=== PATIENT | male | born 1955 | race Caucasian/White ===

== ENCOUNTER 2020-02-12 05:19 | Inpatient (IN) | payer BC, MEDICARE ==
[~2020-02-12] VITALS: Ht 180.3 cm; Wt 96.0 kg
[2020-02-12] MEDS ORDERED: FLONASEALLERGY NS (05:32)
[2020-02-12 05:47] LABS: BASO % 0.3 % (0.0-2.0); EOS % 0.1 % (0-4.0); GRAN # 12.7 (1.4-6.5); GRAN % 88.4 % (42.2-75.2); HEMATOCRIT 42.2 % (42.0-52.0); HEMOGLOBIN 14.2 g/dl (13.5-18.0); LYMPH # 0.5 (1.2-3.4); LYMPH % 3.8 % (20.0-51.0); MEAN CELL VOLUME 90 fl (80.0-100.0); MEAN CORPUSCULAR HEMOGLOBIN 30 pg (27.0-31.0); MEAN CORPUSCULAR HGB CONC 34 g/dl (33.0-37.0); MEAN PLATELET VOLUME 9.6 fl (7.4-10.4); MONO % 7.1 % (1.7-9.3); PLATELET COUNT 164 K/mm3 (130-400); REDCELL DISTRIBUTION WIDTH-CV 11.6 % (11.5-14.5)
[2020-02-12 05:59] LABS: ALBUMIN 4.1 gm/dL (3.5-5.0); BILIRUBIN,TOTAL 1.1 mg/dL (0.0-1.0); C-REACTIVE PROTEIN 7.6 mg/dL (0.0-0.9); CALCIUM 9.2 mg/dL (8.4-10.2); CREATININE, serum 0.77 (0.66-1.25); POTASSIUM 3.7 mmol/L (3.4-5.0); TOTAL PROTEIN 7.1 gm/dL (6.4-8.2)
[2020-02-12 06:47] LABS: COLLECTION METHOD CLEAN CATCH
[2020-02-12 07:01] LABS: MUCOUS Present /lpf; PH 5 (5-8); SQUAMOUS EPITHELIAL None Seen /hpf; URINE APPEARANCE Hazy; URINE BACTERIA Moderate /hpf; URINE BILIRUBIN Negative (NEGATIVE); URINE BLOOD Negative (NEGATIVE); URINE COLOR Yellow; URINE GLUCOSE Negative (NEGATIVE); URINE KETONE Negative (NEGATIVE); URINE LEUKOCYTE ESTERASE 1+ (NEGATIVE); URINE NITRATE Positive (NEGATIVE); URINE PROTEIN(semi-quant) Negative (NEGATIVE); URINE UROBILINOGEN Negative (NEGATIVE)
[2020-02-12] MEDS ORDERED: EPA FISH OIL1 SGL PO (09:56)
[2020-02-12 09:58] VITALS: PULSE 75; TEMP 99.2
[2020-02-12 10:59] VITALS: TEMP 97.6
[2020-02-12 13:27] VITALS: BP 151/73; PULSE 87; TEMP 98.4
[2020-02-12 17:22] VITALS: BP 138/64; PULSE 94; TEMP 98
[2020-02-12 20:36] VITALS: BP 135/67; PULSE 82; TEMP 98.4
[2020-02-12 23:36] VITALS: BP 121/65; PULSE 76; TEMP 98.7
[2020-02-13 04:01] VITALS: BP 131/56; PULSE 70; TEMP 97.8
[2020-02-13 06:26] LABS: BASO % 0.2 % (0.0-2.0); GRAN # 8.6 (1.4-6.5); GRAN % 77.3 % (42.2-75.2); HEMATOCRIT 37.2 % (42.0-52.0); HEMOGLOBIN 12.7 g/dl (13.5-18.0); LYMPH % 8.8 % (20.0-51.0); MEAN CELL VOLUME 92 fl (80.0-100.0); MEAN CORPUSCULAR HEMOGLOBIN 31 pg (27.0-31.0); MEAN CORPUSCULAR HGB CONC 34 g/dl (33.0-37.0); MEAN PLATELET VOLUME 9.7 fl (7.4-10.4); MONO # 1.5 (0.1-0.6); MONO % 13.3 % (1.7-9.3); PLATELET COUNT 139 K/mm3 (130-400); RED BLOOD COUNT 4.05 M/mm3 (4.20-5.60); REDCELL DISTRIBUTION WIDTH-CV 11.8 % (11.5-14.5)
[2020-02-13 06:32] LABS: CALCIUM 8.3 mg/dL (8.4-10.2); CREATININE, serum 0.72 (0.66-1.25); POTASSIUM 3.5 mmol/L (3.4-5.0)
[2020-02-13 08:10] VITALS: BP 123/52; PULSE 79; TEMP 97.9
[2020-02-13 11:30] VITALS: BP 128/65; PULSE 63; TEMP 97.6
[2020-02-13 16:29] VITALS: BP 144/69; PULSE 68; TEMP 97.8
[2020-02-13 16:50] LABS: CLOSTRIDIUM DIFF A/B NEG; CLOSTRIDIUM DIFF A/B INTERP No C.diff present
[2020-02-13 20:51] VITALS: BP 149/79; PULSE 77; TEMP 97.3
[2020-02-13 23:59] VITALS: BP 141/77; PULSE 75; TEMP 98.9
[2020-02-14 04:20] VITALS: BP 134/69; PULSE 6; TEMP 97.8
[2020-02-14 05:50] LABS: BASO % 0.1 % (0.0-2.0); EOS % 0.1 % (0-4.0); GRAN # 5.7 (1.4-6.5); GRAN % 72.4 % (42.2-75.2); HEMOGLOBIN 12.2 g/dl (13.5-18.0); LYMPH # 0.9 (1.2-3.4); MEAN CELL VOLUME 91 fl (80.0-100.0); MEAN CORPUSCULAR HEMOGLOBIN 30 pg (27.0-31.0); MEAN CORPUSCULAR HGB CONC 33 g/dl (33.0-37.0); MONO # 1.3 (0.1-0.6); PLATELET COUNT 161 K/mm3 (130-400); RED BLOOD COUNT 4.03 M/mm3 (4.20-5.60); REDCELL DISTRIBUTION WIDTH-CV 11.3 % (11.5-14.5)
[2020-02-14 05:51] LABS: HEMATOCRIT 36.7 % (42.0-52.0)
[2020-02-14 06:04] LABS: CALCIUM 8.5 mg/dL (8.4-10.2); CREATININE, serum 0.75 (0.66-1.25); POTASSIUM 3.3 mmol/L (3.4-5.0)
[2020-02-14 06:18] LABS: C-REACTIVE PROTEIN 14.2 mg/dL (0.0-0.9)
[2020-02-14 08:03] VITALS: BP 130/61; PULSE 84; TEMP 97.2
[2020-02-14] MEDS ORDERED: OMNICEF 300MG300 MG PO (10:52)
[2020-02-14 12:00] VITALS: BP 133/71; PULSE 70; TEMP 98.1
== END 2020-02-14 12:45 | disposition home or self-care (01) | DRG 872 ==
LOC: COL.ER 05:19 → SURG 08:16
PROVIDERS: Emergency Medicine; Nurse Practitioner Family; Physician Assistant; Student in an Organized Health Care Education/Training Program; ADMIT Internal Medicine
DX: A41.9 Sepsis, unspecified organism (principal); N39.0 Urinary tract infection, site not specified; I10 Essential (primary) hypertension; E78.5 Hyperlipidemia, unspecified; J30.2 Other seasonal allergic rhinitis; R94.31 Abnormal electrocardiogram [ECG] [EKG]
CPT/HCPCS: 99222-AI; 99231-AI; J0696; J1650; J2405; J7030

== ENCOUNTER 2022-02-11 22:30 | Emergency (ER) | payer MEDICARE, OTHER ==
[~2022-02-11] VITALS: Ht 180.3 cm; Wt 95.9 kg
[~2022-02-11 22:30] MED LIST: EPA FISH OIL1 SGL PO; FLONASEALLERGY NS; OMNICEF 300MG300 MG PO
[2022-02-11 22:38] VITALS: TEMP 97.4
[2022-02-11 23:25] LABS: BASO % 0.3 % (0.0-2.0); EOS # 0.1 K/mm3 (0.0-0.7); EOS % 1.7 % (0.0-4.0); GRAN # 3.7 K/mm3 (1.4-6.5); GRAN % 63.9 % (42.2-75.2); HEMATOCRIT 42.7 % (42.0-52.0); HEMOGLOBIN 14.4 g/dl (13.5-18.0); LYMPH # 1.3 K/mm3 (1.2-3.4); LYMPH % 22.8 % (20.0-51.0); MEAN CELL VOLUME 91 fl (80.0-100.0); MEAN CORPUSCULAR HEMOGLOBIN 31 pg (27-31); MEAN CORPUSCULAR HGB CONC 34 g/dl (33.0-37.0); MEAN PLATELET VOLUME 9.6 fl (7.4-10.4); MONO # 0.6 K/mm3 (0.1-0.6); MONO % 11.1 % (1.7-9.3); PLATELET COUNT 197 K/mm3 (130-400); REDCELL DISTRIBUTION WIDTH-CV 11.7 % (11.5-14.5)
[2022-02-11 23:32] LABS: COLLECTION METHOD CLEAN CATCH
[2022-02-11 23:39] LABS: AMORPHOUS CRYSTAL Present (NOT PRESENT); MUCOUS Present (NOT PRESENT); PH 7 (5-8); SQUAMOUS EPITHELIAL None Seen /hpf (0-10); URINE APPEARANCE Clear (CLEAR/HAZY); URINE BACTERIA None Seen /hpf (NONE SEEN); URINE BILIRUBIN Negative (NEGATIVE); URINE BLOOD Negative (NEGATIVE); URINE COLOR Yellow (YELLOW); URINE GLUCOSE Negative (NEGATIVE); URINE KETONE Negative (NEGATIVE); URINE LEUKOCYTE ESTERASE Negative (NEGATIVE); URINE NITRATE Negative (NEGATIVE); URINE PROTEIN(semi-quant) Negative (NEGATIVE); URINE RBC 0-2 /hpf (0-2); URINE UROBILINOGEN Negative (NEGATIVE)
[2022-02-11 23:44] LABS: ALBUMIN 4.1 gm/dL (3.4-4.8); BILIRUBIN,TOTAL 0.4 mg/dL (0.2-1.2); CALCIUM 9.1 mg/dL (8.4-10.2); CREATININE, serum 0.84 mg/dL (0.72-1.25); POTASSIUM 3.9 mmol/L (3.5-4.5); TOTAL PROTEIN 6.8 gm/dL (6.2-8.1)
[2022-02-11 23:51] LABS: TROPONIN-I 0.013 ng/mL (0.00-0.033)
[2022-02-12 01:29] VITALS: BP 125/70; PULSE 78
== END 2022-02-12 01:30 | disposition home or self-care (01) ==
LOC: COL.ER 22:30
PROVIDERS: Student in an Organized Health Care Education/Training Program
DX: R42 Dizziness and giddiness (principal); R60.0 Localized edema

== ENCOUNTER → 2022-03-30 | Outpatient (CLI) | payer MEDICARE, OTHER ==
[2022-03-30 10:41] LABS: MAGNESIUM 2.1 mg/dL (1.6-2.6)
[2022-03-31 11:58] LABS: ANA SCREEN with REFLEX Negative (Negative)
[2022-04-03 10:22] LABS: LYME DISEASE ANTIBODIES Negative (Negative)
[2022-04-04 22:54] LABS: A/G RATIO (PEP) 1.35 (()); BETA GLOBULINS (PEP) 0.9 g/dL (0.7-1.2)
== END ==
LOC: COL.LAB 08:17
PROVIDERS: Psychiatry & Neurology Neurology
DX: E61.1 Iron deficiency (principal); E61.2 Magnesium deficiency; G62.9 Polyneuropathy, unspecified; E55.9 Vitamin D deficiency, unspecified; E53.9 Vitamin B deficiency, unspecified; R73.02 Impaired glucose tolerance (oral); E53.1 Pyridoxine deficiency

== ENCOUNTER 2022-10-01 10:56 | Emergency (ER) | payer MEDICARE, OTHER ==
[~2022-10-01] VITALS: Ht 180.3 cm; Wt 94.5 kg
[2022-10-01 11:08] VITALS: TEMP 97.4
[2022-10-01 12:36] LABS: COLLECTION METHOD CATHETER
[2022-10-01 12:47] LABS: SQUAMOUS EPITHELIAL None Seen /hpf (0-10); URINE BACTERIA Moderate /hpf (NONE SEEN); URINE RBC >50 /hpf (0-2)
[2022-10-01 12:48] LABS: URINE APPEARANCE Cloudy (CLEAR/HAZY); URINE BLOOD 3+ (NEGATIVE); URINE COLOR Amber (YELLOW); URINE GLUCOSE Negative (NEGATIVE); URINE KETONE Negative (NEGATIVE); URINE NITRATE Negative (NEGATIVE); URINE PROTEIN(semi-quant) 3+ (NEGATIVE); URINE UROBILINOGEN 0.2 E.U/dL (0.2-1.0)
[2022-10-01 13:09] LABS: BASO % 0.2 % (0.0-2.0); EOS % 0.4 % (0.0-4.0); GRAN # 7.1 K/mm3 (1.4-6.5); GRAN % 79.5 % (42.2-75.2); HEMATOCRIT 38.3 % (42.0-52.0); HEMOGLOBIN 13.1 g/dl (13.5-18.0); LYMPH % 11.3 % (20.0-51.0); MEAN CELL VOLUME 91 fl (80.0-100.0); MEAN CORPUSCULAR HEMOGLOBIN 31 pg (27-31); MEAN CORPUSCULAR HGB CONC 34 g/dl (33.0-37.0); MEAN PLATELET VOLUME 8.9 fl (7.4-10.4); MONO # 0.8 K/mm3 (0.1-0.6); MONO % 8.4 % (1.7-9.3); PLATELET COUNT 259 K/mm3 (130-400); RED BLOOD COUNT 4.22 M/mm3 (4.20-5.60); REDCELL DISTRIBUTION WIDTH-CV 11.4 % (11.5-14.5)
[2022-10-01 13:25] LABS: CALCIUM 9.2 mg/dL (8.4-10.2); CREATININE, serum 0.75 mg/dL (0.72-1.25); POTASSIUM 4.4 mmol/L (3.5-4.5)
[2022-10-01] MEDS ORDERED: OMNICEF 300MG300 MG PO (13:57)
[2022-10-01 14:25] VITALS: BP 142/86; PULSE 72
== END 2022-10-01 14:25 | disposition home or self-care (01) ==
LOC: COL.ER 10:56
PROVIDERS: Emergency Medicine
DX: N40.1 Benign prostatic hyperplasia with lower urinary tract symptoms (principal); R33.8 Other retention of urine; N39.0 Urinary tract infection, site not specified; Z79.899 Other long term (current) drug therapy
CPT/HCPCS: J0696

== ENCOUNTER 2022-12-18 10:50 | Day surgery (SDC) | payer MEDICARE, OTHER ==
[2022-12-18] VITALS (10 sets, daily range): BP systolic 110–128; BP diastolic 58–72; PULSE 51–81; TEMP 18
[~2022-12-18] VITALS: Ht 165.1 cm; Wt 90.2 kg
[2022-12-18] MEDS ORDERED: SINEMET 25/101 UDTAB PO (11:43)
[2022-12-18] MEDS ORDERED: TRIAM OI 80 0.025 TOP (11:44)
[2022-12-18] MEDS ORDERED: MOBIC15 MG PO (11:45)
[2022-12-18] MEDS ORDERED: DRISDOL50000 IU PO (11:45)
[2022-12-18] MEDS ORDERED: FLOMAX 0.40.4 MG/CAP (11:46)
[2022-12-18] MEDS ORDERED: B-121000 MCG PO (11:47)
--- NOTE | 2022-12-18 12:57 | NUR ---
Initial visit; Patient and his thanked Cash Shortage Investigator for offering Prayer and encouragement prior to his surgical procedure. Cash Shortage Investigator also offered prayer for a rapid and thorough recovery.
[2022-12-18] MEDS ORDERED: PYRIDIUM 100MG100 MG PO (13:35)
--- NOTE | 2022-12-18 15:48 | NUR ---
PT TO ROOM 328 PER BED WITH REPORT FROM VALERIA HUIZAR PACU @[id number]. PT IS A/O X4, LUNGS CTA, BOWER TO DD WITH CBI RUNNING. [address] WITH 7349 CBI CREDIT. IV TO LFA. PT DENIES PAIN. LIGHT PINK URINE IN BOWER BAG.
--- NOTE | 2022-12-18 21:51 | NUR ---
SHIFT REPORT FROM VERONIKA HUIZAR. PATIENT IN BED ON ROOM ENTRY. HS MEDS PER EMAR. CBI INFUSING SLOW WITH PINK OUTPUT TO BOWER BAG. DENIES PAIN. IVF INFUSING TO LFA. SOME BLOOD NOTED TO BOWER INSERTION SITE. DENIES ADDITIONAL NEEDS. CALL LIGHT IN REACH.
[2022-12-19 03:07] VITALS: BP 131/66; PULSE 75; TEMP 98.3
[2022-12-19 07:38] VITALS: BP 122/61; PULSE 74; TEMP 98.8
--- NOTE | 2022-12-19 08:29 | NUR ---
MARGOT AYERS FOR UROLOGY IN TO ROUND ON PT. BOWER CATH TO DD WITH CBI RUNNING. PT IS A/O X4. DENIES PAIN OR NEEDS AT THISTIME. PLAN ON DISCHARGE LATER TODAY OR TOMMORROW PENDING VOIDING TRIAL.
--- NOTE | 2022-12-19 09:26 | NUR ---
Follow-up visit; Patient appears to be doing well and thanked Commodity Lead for looking in on him before he goes home.
== END 2022-12-19 13:46 | disposition home or self-care (01) ==
LOC: SDCO 10:50 → SURG 15:18 → SDCO 12-19 13:46
DX: N40.1 Benign prostatic hyperplasia with lower urinary tract symptoms (principal); R39.12 Poor urinary stream; R39.14 Feeling of incomplete bladder emptying; R35.1 Nocturia; N39.41 Urge incontinence; R33.8 Other retention of urine
CPT/HCPCS: OP; J0690; J2250; J2405; J2704; J3010; J3480; J7120

== ENCOUNTER 2022-12-26 14:30 | Outpatient (RCR) | payer MEDICARE, OTHER ==
[~2022-12-26 14:30] MED LIST changes: +B-121000 MCG PO; +DRISDOL50000 IU PO; +FLOMAX 0.40.4 MG/CAP; +MOBIC15 MG PO; +PYRIDIUM 100MG100 MG PO; +SINEMET 25/101 UDTAB PO; +TRIAM OI 80 0.025 TOP
== END 2022-12-28 | disposition home or self-care (01) ==
LOC: WSST
DX: R49.0 Dysphonia (principal); R47.1 Dysarthria and anarthria; G20 Parkinson's disease

== ENCOUNTER 2023-01-17 13:00 | Outpatient (RCR) | payer MEDICARE, OTHER | END 2023-01-27 | disposition home or self-care (01) | LOC: WSST | DX: R49.0 Dysphonia (principal); F80.0 Phonological disorder; G20 Parkinson's disease ==

== ENCOUNTER → 2023-01-23 | Outpatient (CLI) | payer MEDICARE, OTHER | LOC: MHCPAIN 13:35 | DX: M54.50 Low back pain, unspecified (principal); M51.36 Other intervertebral disc degeneration, lumbar region; M47.816 Spondylosis without myelopathy or radiculopathy, lumbar region; G20 Parkinson's disease | CPT/HCPCS: G0463 ==

== ENCOUNTER → 2023-02-27 | Outpatient (RCR) | payer MEDICARE, OTHER | END | disposition home or self-care (01) | LOC: WSST | DX: R49.0 Dysphonia (principal); R47.1 Dysarthria and anarthria; G20 Parkinson's disease ==

== ENCOUNTER 2023-05-27 14:30 | Outpatient (RCR) | payer MEDICARE, OTHER | END 2023-05-30 | disposition home or self-care (01) | LOC: MKS.ESL.OT | DX: G20 Parkinson's disease (principal); M54.50 Low back pain, unspecified ==

== ENCOUNTER 2023-06-28 14:30 | Outpatient (RCR) | payer MEDICARE, OTHER | END 2023-06-29 | disposition home or self-care (01) | LOC: MKS.ESL.OT | DX: G20 Parkinson's disease (principal); M54.50 Low back pain, unspecified; R49.0 Dysphonia; R47.1 Dysarthria and anarthria ==

== ENCOUNTER → 2023-07-08 | Outpatient (CLI) | payer MEDICARE, OTHER | LOC: MHCPAIN 07-01 11:31 | DX: M47.816 Spondylosis without myelopathy or radiculopathy, lumbar region (principal) ==

== ENCOUNTER → 2023-09-18 | Outpatient (CLI) | payer MEDICARE, OTHER | LOC: MHCPAIN 12:54 | DX: M54.50 Low back pain, unspecified (principal); M53.3 Sacrococcygeal disorders, not elsewhere classified; R29.3 Abnormal posture | CPT/HCPCS: G0463 ==

== ENCOUNTER → 2023-09-19 | Outpatient (CLI) | payer MEDICARE, OTHER | LOC: MHCPAIN 13:48 | DX: M54.50 Low back pain, unspecified (principal); M47.898 Other spondylosis, sacral and sacrococcygeal region; M53.3 Sacrococcygeal disorders, not elsewhere classified | CPT/HCPCS: J3301; Q9967 ==

== ENCOUNTER 2023-09-27 13:00 | Outpatient (RCR) | payer MEDICARE, OTHER | END 2023-09-29 | disposition home or self-care (01) | LOC: MKS.ESL.OT | DX: G20.A1 Parkinson's disease without dyskinesia, without mention of fluctuations (principal); M54.50 Low back pain, unspecified ==

== ENCOUNTER → 2023-10-24 | Outpatient (CLI) | payer MEDICARE, OTHER ==
[~2023-10-24] MED LIST changes: +MYRBETR25MG PO; +REQUIP XL2 MG PO; +VITAMIN D 50,1.25 MG PO
== END ==
LOC: MHCPAIN 15:00
DX: M54.50 Low back pain, unspecified (principal); M53.3 Sacrococcygeal disorders, not elsewhere classified; G20.B1 Parkinson's disease with dyskinesia, without mention of fluctuations
CPT/HCPCS: G0463

== ENCOUNTER 2023-10-29 13:45 | Outpatient (RCR) | payer MEDICARE, OTHER ==
[~2023-10-29 13:45] MED LIST changes: -MYRBETR25MG PO; -REQUIP XL2 MG PO; -VITAMIN D 50,1.25 MG PO
== END 2023-10-30 | disposition home or self-care (01) ==
LOC: MKS.ESL.OT
DX: G20.A1 Parkinson's disease without dyskinesia, without mention of fluctuations (principal); M47.816 Spondylosis without myelopathy or radiculopathy, lumbar region

== ENCOUNTER → 2023-11-18 | Outpatient (CLI) | payer MEDICARE, OTHER ==
[~2023-11-18] MED LIST changes: +Iohexol 300 - 10 ML VIAL ONE; +MYRBETR25MG PO; +REQUIP XL2 MG PO; +Triamcinolone 40 MG/ML 1 ML VIAL ONE; +VITAMIN D 50,1.25 MG PO
== END ==
LOC: MHCPAIN 10:01
DX: M54.50 Low back pain, unspecified (principal); M53.3 Sacrococcygeal disorders, not elsewhere classified; M47.898 Other spondylosis, sacral and sacrococcygeal region; G20.B1 Parkinson's disease with dyskinesia, without mention of fluctuations
CPT/HCPCS: J3301; Q9967

== ENCOUNTER 2023-11-19 12:56 | Day surgery (SDC) | payer MEDICARE, OTHER ==
[2023-11-19] VITALS (8 sets, daily range): BP systolic 115–137; BP diastolic 61–78; PULSE 56–69; TEMP 98–98.5
[~2023-11-19] VITALS: Ht 180.3 cm; Wt 80.5 kg
[~2023-11-19 12:56] MED LIST changes: -Iohexol 300 - 10 ML VIAL ONE; +LR 1,000 ML IV SCH; -MYRBETR25MG PO; -REQUIP XL2 MG PO; -Triamcinolone 40 MG/ML 1 ML VIAL ONE; -VITAMIN D 50,1.25 MG PO
[2023-11-19] MEDS ORDERED: VITAMIN D 50,1.25 MG PO (13:51)
[2023-11-19] MEDS ORDERED: REQUIP XL2 MG PO (13:52)
[2023-11-19] MEDS ORDERED: MYRBETR25MG PO (13:52)
[2023-11-19] MEDS ORDERED: fentaNYL 50 MCG/ML 2 ML VIAL ONE (14:54)
[2023-11-19] MEDS ORDERED: Lidocaine PF 2% (20 MG/ML) 5 ML VIAL ONE (14:55)
[2023-11-19] MEDS ORDERED: Glycopyrrolate 0.2 MG/ML 1 ML VIAL ONE (14:55)
[2023-11-19] MEDS ORDERED: Ondansetron 4 MG/2 ML VIAL ONE (14:55)
[2023-11-19] MEDS ORDERED: NS 10 ML IV ONE (14:55)
[2023-11-19] MEDS ORDERED: dexAMETHasone 10 MG/ML VIAL ONE (14:55)
[2023-11-19] MEDS ORDERED: Iohexol 350 - 100 ML VIAL URETER-B ONE (15:16)
[2023-11-19] MEDS ORDERED: Lidocaine 2% (20 MG/ML) 20 ML UROJET UR ONE (15:16)
[2023-11-19] MEDS ORDERED: Morphine 4 MG/ML VIAL IV PRN (15:30)
[2023-11-19] MEDS ORDERED: HYDROmorphone 2 MG/1 ML VIAL IV PRN (15:30)
[2023-11-19] MEDS ORDERED: Ondansetron 4 MG/2 ML VIAL IV PRN ×2 (15:30→16:00)
[2023-11-19] MEDS ORDERED: Meperidine 50 MG/ML 1 ML VIAL IV PRN (15:30)
[2023-11-19] MEDS ORDERED: Hyoscyamine 0.125 MG Sublingual TAB SL PRN (16:00)
[2023-11-19] MEDS ORDERED: Acetaminophen 325 MG TAB PO PRN (16:00)
[2023-11-19] MEDS ORDERED: Naloxone 0.4 MG/ML VIAL IV PRN (16:00)
[2023-11-19] MEDS ORDERED: oxyCODONE 5 MG TAB PO PRN (16:00)
[2023-11-19] MEDS ORDERED: Acetaminophen 500 MG TAB PO SCH (16:47)
--- NOTE | 2023-11-19 18:15 | NUR ---
1610 RETURNS TO ROOM 8 PER CART. AWAKE, ALERT WITH HOB ELEVATED 50 DEGREES. RESP UNLABORED. DENIES PAIN OR URINARY URGENCY. VITAL SIGNS OBTAINED. CALL LIGHT AT SIDE. IN ROOM. 1625 AWAKE. CONVERSES APPROPRIATELY. SPEAKS VERY SLOWLY. DENIES DISCOMFORT 1640 TOLERATES PO JUICE WITHOUT NAUSEA. 1655 AWAKE, DENIES PAIN, URINARY URGENCY OR NEED TO VOID 1720 DISCHARGE INSTRUCTIONS REVIEWED. PATIENT AND VERBALIZE UNDERSTANDING. COPY PROVIDED IN DISCHARGE FOLDER 1735 SITS ON EDGE OF BED. DRESSES WITH ASSIST FROM . MOBILITY IS VERY SLOW. 1750 SITS IN WHEELCHAIR THEN ASSISTED TO BATHROOM. PATIENT STANDS AT TOILET. VOIDS SMALL AMOUNT OF LIGHT RED URINE. CONTINUES TO DENY DISCOMFORT
== END 2023-11-19 18:15 | disposition home or self-care (01) ==
LOC: SDCO 12:56
DX: D41.4 Neoplasm of uncertain behavior of bladder (principal); R31.0 Gross hematuria; R12 Heartburn; Z90.79 Acquired absence of other genital organ(s)
CPT/HCPCS: J0690; J1100; J2405; J2704; J3010; J7120; Q9967

== ENCOUNTER 2023-11-26 13:45 | Outpatient (RCR) | payer MEDICARE, OTHER ==
[~2023-11-26 13:45] MED LIST changes: -LR 1,000 ML IV SCH; +MYRBETR25MG PO; +REQUIP XL2 MG PO; +VITAMIN D 50,1.25 MG PO
[2023-12-01] MEDS ORDERED: LEVAQUIN 5500 MG/TA1 PO (12:58)
== END 2023-11-28 | disposition home or self-care (01) ==
LOC: MKS.ESL.OT
DX: G20.A1 Parkinson's disease without dyskinesia, without mention of fluctuations (principal); M54.50 Low back pain, unspecified